=== PATIENT | male | born 1955 | race Caucasian/White ===

== ENCOUNTER 2019-05-26 10:06 | Outpatient (CLI) | payer BC ==
--- NOTE | 2019-05-26 11:16 | RAD ---
ABBOTT VIEW OF SINUSES: Date: 05/26/2019 HISTORY: MRI clearance. Patient is a electric welder. FINDINGS: No radiopaque foreign bodies are seen. Very minimal mucosal change along the lateral wall of the righ t maxillary sinus. IMPRESSION: No metallic foreign bodies. POS: OFF
--- NOTE | 2019-05-26 12:07 | MRI ---
BRAIN MRI WITHOUT CONTRAST: Date: 05/26/2019 HISTORY: Concussion, without loss of consciousness. FINDINGS: Calvarium has an appropriate T1 marrow signal intensity. Midline brain parenchymal structures are unr emarkable. No hemorrhage on the axial gradient echo sequence. No parenchymal mass, mass effect, or midline shift. Age-appropriate atrophy. There is a small focus o f cortical gliosis involving the right temporoparietal region. Otherwise, cortical hernandez-white matter differentiation is preserved. Scattered T2 and FLAIR white matter hyperintensity due to chronic small vessel ischemic change. No hydrocephalus. Central arterial flow-voids are maintained. Absent restricted diffusion. Bilateral maxillary sinus and ethmoidal mucosal thickening. Mucus retention cyst in the left maxillar y sinus. IMPRESSION: 1. Chronic changes involving the brain parenchyma. 2. Absent restricted diffusion. No acute infarct. 3. Sinus disease as described above. POS: CET
== END 2019-05-26 10:07 | disposition home or self-care (01) ==
LOC: BICMRI 10:06
PROVIDERS: ATTEND Family Medicine
DX: S06.0X0D Concussion without loss of consciousness, subsequent encounter (principal); J34.89 Other specified disorders of nose and nasal sinuses
CPT/HCPCS: 70210; 70551

== ENCOUNTER 2020-09-14 05:57 | Day surgery (SDC) | payer BC ==
[2020-09-12 14:47] VITALS: BMI 25.8
[2020-09-14] MEDS ORDERED: Fentanyl 250 MCG/5 ML VIAL ONE (06:09)
== END 2020-09-14 10:30 | disposition home or self-care (01) ==
LOC: CCL 05:57
PROVIDERS: ATTEND Internal Medicine Cardiovascular Disease
PROC: B24BZZ4 Ultrasonography of Heart with Aorta, Transesophageal (ICD-10-PCS; principal; 2020-09-14)
DX: I63.9 Cerebral infarction, unspecified (principal); I10 Essential (primary) hypertension; F17.200 Nicotine dependence, unspecified, uncomplicated; Z79.01 Long term (current) use of anticoagulants; Z79.02 Long term (current) use of antithrombotics/antiplatelets; Z79.899 Other long term (current) drug therapy
CPT/HCPCS: 93312; J3010